=== PATIENT | female | born 1960 | race Caucasian/White ===

== ENCOUNTER 2024-03-26 11:44 | Outpatient (CLI) | payer MEDICAID | END 2024-03-26 23:59 | disposition home or self-care (01) | LOC: RAD 11:44 | PROVIDERS: ATTEND Physician Assistant | DX: M16.0 Bilateral primary osteoarthritis of hip (principal); M25.551 Pain in right hip; M54.50 Low back pain, unspecified; I70.0 Atherosclerosis of aorta | CPT/HCPCS: 72100; 73522 ==

== ENCOUNTER 2025-03-01 14:06 | Outpatient (CLI) | payer MEDICAID | END 2025-03-01 23:59 | disposition home or self-care (01) | LOC: MRI02 14:06 | PROVIDERS: ATTEND Nurse Practitioner | DX: M51.17 Intervertebral disc disorders with radiculopathy, lumbosacral region (principal); M48.061 Spinal stenosis, lumbar region without neurogenic claudication; M54.50 Low back pain, unspecified; M47.26 Other spondylosis with radiculopathy, lumbar region | CPT/HCPCS: 72148 ==